=== PATIENT | male | born 1975 | race Caucasian/White ===

== ENCOUNTER 2019-02-18 09:22 | Emergency (ER) | payer MEDICAID ==
[~2019-02-18 09:22] MED LIST: ATIVAN1 MG PO; COZAAR100 MG PO; HYDROCODONE-APA1 TAB PO; MOBIC7.5 MG PO; NORCO 10/325 TA1 TA1 PO; PERCOCET 10/3251 TA1 PO; PRINIVIL20 MG PO; PROZAC20 MG PO; TYLENOL W/CODEI1 TAB PO; VIMOVO 500-201 EACH PO
[2019-02-18 09:27] VITALS: BMI 25.8
[2019-02-18 13:46] LABS: BASOPHILS 0.3 % (0-2); EOSINOPHILS 0.5 % (0-7); HEMATOCRIT 39.7 % (42.0-54.0); HEMOGLOBIN 13.8 g/dL (13.5-17.5); IMMATURE GRANULOCYTES 0.3 % (0-5); MCH 29.1 pg (26.0-34.0); MCHC 34.8 g/dL (31.0-37.0); MCV 83.6 fL (80.0-100.0); MEAN PLATELET VOLUME 9.1 fL (7.4-10.4); MONOCYTES 4.3 % (2-11); NEUTROPHILS 74.6 % (40-80); RBC 4.75 10x6/uL (4.20-6.10); RDW 12.9 % (11.5-14.5); WBC 10.4 10x3/uL (4.8-10.8)
[2019-02-18 14:04] LABS: ALBUMIN 4.1 g/dL (3.4-5.0); ALKALINE PHOSPHATASE 62 U/L (46-116); ALT (SGPT) 25 U/L (10-68); BILIRUBIN - TOTAL 0.17 mg/dL (0.2-1.3); CALC OSMOLALITY 276 mosm/kg (275-300); CALCIUM 8.6 mg/dL (8.5-10.1); CARBON DIOXIDE 26.4 mmol/L (21.0-32.0); CHLORIDE - SERUM 101 mmol/L (98-107); CREATININE - SERUM 0.7 mg/dL (0.6-1.3); GLUCOSE 124 mg/dL (74-106); MAGNESIUM - SERUM 1.8 mg/dL (1.8-2.4); POTASSIUM - SERUM 3.2 mmol/L (3.5-5.1); SODIUM 139 mmol/L (136-145); UREA NITROGEN 6 mg/dL (7-18); eGFR NON AFRICAN AMERICAN > 90 mL/min (90-120)
[2019-02-18 14:24] LABS: PLATELET COUNT 343 10x3/uL (130-400)
[2019-02-18 14:46] VITALS: BP 147/106
== END 2019-02-18 14:46 | disposition home or self-care (01) ==
LOC: D.ER 09:22
PROVIDERS: Emergency Medicine
DX: F10.10 Alcohol abuse, uncomplicated (principal); E87.6 Hypokalemia

== ENCOUNTER 2021-01-12 05:17 | Day surgery (SDC) | payer OTHER ==
[~2021-01-12] VITALS: Ht 177.8 cm; Wt 75.3 kg
--- NOTE | ~2021-01-12 | OP ---
PATIENT NAME: STACEY CALVERT MEDICAL RECORD: [id number] LOCATION:[facility] ADMISSION DATE: SURGEON: LUKE GAITAN MD DATE OF OPERATION: 01/12/2021 PREOPERATIVE DIAGNOSIS: Right small finger proximal phalanx fracture. POSTOPERATIVE DIAGNOSIS: Right small finger proximal phalanx fracture. PROCEDURE PERFORMED: Closed reduction percutaneous pinning, right small finger proximal phalanx. INDICATIONS FOR THE PROCEDURE: Mr. Calvert is a 45-year-old male who injured his right hand approximately 1 week ago, he was wrestling. His finger was twisted and he complained of pain and deformity. He was seen in the Emergency Department where an x-ray showed a fracture at the base of the small finger proximal phalanx. Arrangements were made for him to come to the operating room today for operative repair. Risks, benefits and alternatives of surgery were discussed with the patient and consent was obtained. DESCRIPTION OF THE PROCEDURE: The patient was met in the holding area where his identity and confirmation of procedure was performed. The right upper extremity was marked. He was taken to the operating room where he was placed supine on the operating table, and anesthesia was administered. A tourniquet was applied to the right arm. The right arm was prepped and draped in a sterile fashion. The patient received preoperative antibiotics and timeout was performed before initiating the case. On initiation of the case, closed reduction of the small finger proximal phalanx was performed. Two 0.45 K-wires were then placed for our fixation. We began along the radial border, advanced the K-wire through the proximal fracture fragment into the distal fragment and then repeated this along the ulnar border. Once we were pleased with our alignment, K-wires were advanced into the far cortex of the distal fracture fragment. This provided good alignment fixation of the fracture. The wires were bent and cut. Final images were obtained. The sterile dressing was then placed. The patient was placed into an ulnar gutter splint, turned back over to anesthesia where he was awakened, extubated, and taken to recovery room in stable condition. POSTOPERATIVE PLAN: The patient is going to return home with his family today. He needs to remain in the splint at all times. We will plan to see him back in clinic in 2 weeks. COMPLICATIONS: None. ESTIMATED BLOOD LOSS: 5 mL. ANESTHESIA: General. TRANSINT:[id number] Voice Confirmation ID: [id number] DOCUMENT ID: [id number] OPERATIVE REPORT [id number] STACEY CALVERT BRENT M MD CC: [id number] DICTATION DATE: 01/12/21839 CLAIMS ADJUSTER CROP: 01/12/21 1453 [facility] [place] 01/12/21 [id number] [place] [address]
[~2021-01-12 05:17] MED LIST changes: +KLONOPIN1 MG; +ZESTRIL10 MG PO
[2021-01-12 05:51] LABS: BASOPHILS 0.8 % (0-2); EOSINOPHILS 4.5 % (0-7); HEMATOCRIT 42.5 % (42.0-54.0); HEMOGLOBIN 14.3 g/dL (13.5-17.5); IMMATURE GRANULOCYTES 0.2 % (0-5); LYMPHOCYTE ABS# 3.52 10x3/uL (1.32-3.57); MCHC 33.6 g/dL (31.0-37.0); MCV 86.2 fL (80.0-100.0); MEAN PLATELET VOLUME 8.7 fL (7.4-10.4); MONOCYTES 9.7 % (2-11); NEUTROPHIL ABS# 7.54 10x3/uL (1.78-5.38); NEUTROPHILS 57.8 % (40-80); PLATELET COUNT 342 10x3/uL (130-400); RBC 4.93 10x6/uL (4.20-6.10)
[2021-01-12] MEDS ORDERED: TRAZODONE HCL50 MG PO (06:19)
[2021-01-12 06:21] VITALS: BP 115/75; Ht 177.8 cm; Wt 75.3 kg
[2021-01-12 06:24] LABS: CALC OSMOLALITY 278 mosm/kg (275-300); CALCIUM 9.1 mg/dL (8.5-10.1); CHLORIDE - SERUM 103 mmol/L (98-107); CREATININE - SERUM 0.9 mg/dL (0.6-1.3); GLUCOSE 98 mg/dL (74-106); POTASSIUM - SERUM 4.3 mmol/L (3.5-5.1); SODIUM 138 mmol/L (136-145); UREA NITROGEN 22 mg/dL (7-18); eGFR NON AFRICAN AMERICAN > 90 mL/min (90-120)
--- NOTE | 2021-01-12 11:01 | NUR ---
1050 PT CALLED OUT, STATES READY TO GO HOME, DRESSED, RELEASED IN WC, [employer] HOME.
== END 2021-01-12 10:50 | disposition home or self-care (01) ==
LOC: D.OPS 05:17
PROVIDERS: Anesthesiology; ATTEND Orthopaedic Surgery
DX: S62.616A Displaced fracture of proximal phalanx of right little finger, initial encounter for closed fracture (principal); X58.XXXA Exposure to other specified factors, initial encounter; M79.641 Pain in right hand